=== PATIENT | male | born 1945 | race Caucasian/White ===

== ENCOUNTER 2020-10-15 12:09 | Emergency (ER) | payer MEDICARE, OTHER ==
[2020-10-15 14:02] LABS: BASOPHIL 0.5 % (0-2); EOSINOPHIL 5.1 % (0-7); HCT 44.9 % (42.0-52.0); HGB 15.2 g/dl (13.2-18.0); LYMPHOCYTE 18.8 % (15-48); MCH 29.5 pg (25.0-31.0); MCHC 33.9 g/dL (32.0-36.0); MCV 87.2 fL (78.0-100.0); MONOCYTE 6.9 % (0-12); MPV 11.8 fL (6.0-9.5); NEUTROPHIL 68.6 % (41-80); NRBC 0; PLT 215 K/uL (150-400); RBC 5.15 M/uL (4.70-6.00); RDW 13.2 % (11.5-14.0); WBC 8.4 K/uL (4.0-10.5)
[2020-10-15 14:26] LABS: BILIRUBIN NEGATIVE (NEGATIVE); BLOOD NEGATIVE Ery/uL (NEGATIVE); CLARITY CLEAR (CLEAR); COLOR YELLOW (YELLOW); GLUCOSE (U) 3+ mg/dL (NORMAL); LEUKOCYTES NEGATIVE Leu/uL (NEGATIVE); NITRITE NEGATIVE (NEGATIVE); PROTEIN NEGATIVE (NEGATIVE); UROBILINOGEN 0.2 mg/dL (0.2-1.0); pH 5.5 (5.0-9.0)
[2020-10-15 15:25] LABS: ALBUMIN 3.9 g/dL (3.4-5.0); BILIRUBIN - TOTAL 0.4 mg/dL (0.2-1.0); CREATININE 0.84 mg/dL (0.67-1.17); GLOBULIN (CALCULATION) 3.9 g/dL; POTASSIUM 4.7 mmol/L (3.5-5.1); TOTAL PROTEIN 7.8 g/dL (6.4-8.2)
== END 2020-10-15 16:06 | disposition left against medical advice (07) ==
LOC: FER 12:09
PROVIDERS: Nurse Practitioner Family
DX: E11.65 Type 2 diabetes mellitus with hyperglycemia (principal); I10 Essential (primary) hypertension; E03.9 Hypothyroidism, unspecified; E78.5 Hyperlipidemia, unspecified; Z88.0 Allergy status to penicillin; Z88.2 Allergy status to sulfonamides; Z79.899 Other long term (current) drug therapy; Z79.4 Long term (current) use of insulin; Z79.82 Long term (current) use of aspirin; Z53.8 Procedure and treatment not carried out for other reasons
CPT/HCPCS: 36415; 80053; 81003; 82009; 83036; 85025; 99284; J7030